=== PATIENT | male | born 1940 | race Caucasian/White ===

== ENCOUNTER 2024-04-14 06:48 | Outpatient (REF) | payer MEDICARE, SELFPAY | END 2024-04-14 06:49 | disposition home or self-care (01) | LOC: HO.MMNH1L 06:48 | PROVIDERS: Visit Provider Hospitalist | DX: Z13.89 Encounter for screening for other disorder (principal) ==

== ENCOUNTER 2024-04-24 16:50 | Outpatient (REF) | payer MEDICARE, SELFPAY | END 2024-04-24 16:51 | disposition home or self-care (01) | LOC: HO.MMNH1L 16:50 | PROVIDERS: Visit Provider Hospitalist | DX: Z13.89 Encounter for screening for other disorder (principal) | CPT/HCPCS: 81003 ==